=== PATIENT | male | born 1960 | race Caucasian/White ===

== ENCOUNTER 2016-10-21 15:02 | Emergency (ER) | payer OTHER ==
[~2016-10-21] VITALS: Ht 172.7 cm; Wt 88.8 kg
[2016-10-21 15:03] VITALS: BP 139/78
[2016-10-21] MEDS ORDERED: LIDOCAINE 2% MDV 20 ML VIAL As Ordered ONE (16:21)
[2016-10-21] MEDS ORDERED: LIDOCAINE 2% MDV 20 ML VIAL SC ONE (16:30)
== END 2016-10-21 17:04 | disposition home or self-care (01) ==
LOC: M ED 15:02
DX: S61.214A Laceration without foreign body of right ring finger without damage to nail, initial encounter (principal); Z87.891 Personal history of nicotine dependence; W45.8XXA Other foreign body or object entering through skin, initial encounter; Y92.099 Unspecified place in other non-institutional residence as the place of occurrence of the external cause; Y93.89 Activity, other specified; Y99.9 Unspecified external cause status

== ENCOUNTER → 2018-02-05 | Outpatient (CLI) | payer OTHER | LOC: M SLEEP 19:14 | DX: G47.33 Obstructive sleep apnea (adult) (pediatric) (principal) | CPT/HCPCS: 95810 ==

== ENCOUNTER 2020-09-28 13:40 | Emergency (ER) | payer OTHER ==
[~2020-09-28] VITALS: Ht 172.7 cm; Wt 107.3 kg
[2020-09-28 14:29] LABS: BASO % 0.6 % (0.0-1.0); EOS # 0.1 10^3/uL (0.0-0.5); EOS % 1.2 % (0.0-3.0); HEMATOCRIT 48.4 % (42.0-52.0); HEMOGLOBIN 15.7 g/dl (13.5-17.5); LYMPH # 1.2 10^3/uL (1.5-5.0); LYMPH % 17.7 % (24.0-44.0); MEAN CORPUSCULAR HEMOGLOBIN 28.9 pg (27.0-33.0); MEAN CORPUSCULAR HGB CONC 32.4 g/dl (32.0-36.5); MEAN CORPUSCULAR VOLUME 89.1 fl (80.0-96.0); MONO % 14.7 % (2.0-8.0); NEUTROPHILS # 4.4 10^3/uL (1.5-8.5); NEUTROPHILS % 65.4 % (36.0-66.0); PLATELET COUNT, AUTOMATED 259 10^3/uL (150-450); RED BLOOD COUNT 5.43 10^6/uL (4.30-6.10); WHITE BLOOD COUNT 6.8 10^3/uL (4.0-10.0)
[2020-09-28] MEDS ORDERED: COMBIVENT RESPIMAT 100-20MCG INHALER 4GM INH STA (14:44)
[2020-09-28 14:51] LABS: ALBUMIN 4.3 GM/DL (3.2-5.2); ALT/SGPT 45 U/L (12-78); BILIRUBIN,DIRECT < 0.1 MG/DL (0.0-0.2); BILIRUBIN,TOTAL 0.3 MG/DL (0.2-1.0); TOTAL PROTEIN 7.4 GM/DL (6.4-8.2)
--- NOTE | 2020-09-28 14:57 | REP ---
INDICATION: DYSPNEA/COUGH. COMPARISON: None. TECHNIQUE: Single portable AP view of the chest was performed. FINDINGS: There is no evidence of acute infiltrate. There is mild bibasilar fibro atelectatic change. The heart is not significantly enlarged. The mediastinal silhouette is unremarkable. The visualized osseous structures appear intact. IMPRESSION: No acute pulmonary disease.Mild bibasilar fibro atelectatic change. <Electronically signed by Corby Layton > 09/28/20 [id number]
[2020-09-28] MEDS ORDERED: ISOVUE-370 76% 100ML VIAL As Ordered ONE (16:04)
--- NOTE | 2020-09-28 16:40 | REP ---
INDICATION: CP/SOB. Otherwise no acute disease. COMPARISON: None. TECHNIQUE: Contrast dose: 75 ML of Isovue [address] technique: Helical scanning is acquired and overlapping 1.5 mm and contiguous 3 mm axial images are reformatted. In addition, maximum intensity projection and multiplanar re-formation images are generated in sagittal and coronal imaging projections. FINDINGS: There is good opacification in the pulmonary arterial tree. There is no evidence of vessel cut off or filling defect to suggest pulmonary embolus. Homogeneous opacity is seen in the thoracic aorta. There is no evidence of aneurysm or dissection. There is no evidence of pleural or pericardial effusion. No hilar or mediastinal mass or adenopathy is observed. Lung window settings demonstrate no evidence of infiltrate, lung mass, or significant pulmonary nodule. There is a granulomatous calcification in the left upper lobe. Lung parenchyma is otherwise clear. In the upper abdomen, there is fatty infiltration of the liver diffusely. Normal adrenal glands are seen. A sliding-type hiatal hernia is noted. There are 2 large calcified gallstones in the lumen of the gallbladder. The visualized upper abdominal structures are otherwise unremarkable. IMPRESSION: No CT evidence of pulmonary embolus. Cholelithiasis. Diffuse fatty infiltration of the liver. <Electronically signed by Colby Varner > 09/28/20 [id number]
[2020-09-28] MEDS ORDERED: PROV108A INH (17:15)
[2020-09-28 17:30] VITALS: BP 132/80
--- NOTE | 2020-09-29 07:20 | ECGEPIP ---
[facility] - ED Test Date: 2020-09-28 Pat Name: PEMA LOPEZ Department: Room: - Gender: Male Food Analyst: PETE : 1960 Requested By: Ángela Callahan Order Number: [id number] Reading MD: Pete Molina Measurements Intervals [place] Rate: 91 P: 21 MD: 150 QRS: 6 QRSD: 78 T: 5 QT: 346 QTc: 425 Interpretive Statements Normal sinus rhythm Low voltage QRS POOR R WAVE PROGRESSION NONSPECIFIC T WAVE ABNORMALITY(S) NO PRIORS FOR COMPARISON Electronically Signed on 09-29-2020 7:20:19 EDT by Pete Molina
== END 2020-09-28 17:45 | disposition home or self-care (01) ==
LOC: M ED 13:40
DX: R06.9 Unspecified abnormalities of breathing (principal); R05 Cough; I10 Essential (primary) hypertension; F43.10 Post-traumatic stress disorder, unspecified; Z79.899 Other long term (current) drug therapy; Z87.891 Personal history of nicotine dependence
CPT/HCPCS: 36415; 71045; 71275; 80047; 80076; 84484; 85025; 87798; 93005; 93041; 94760; 99285; Q9967

== ENCOUNTER 2020-11-21 00:23 | Emergency (ER) | payer OTHER ==
[~2020-11-21] VITALS: Ht 172.7 cm; Wt 111.3 kg
[~2020-11-21 00:23] MED LIST: PROV108A INH
[2020-11-21] MEDS ORDERED: LISI-898 PO (00:30)
[2020-11-21] MEDS ORDERED: ACETAMINOPHEN 325 MG TAB PO ONE (02:05)
[2020-11-21 03:22] LABS: RSV AMPLIFICATION NEGATIVE (NEGATIVE)
[2020-11-21 04:38] VITALS: BP 138/80
== END 2020-11-21 05:17 | disposition left against medical advice (07) ==
LOC: M ED 00:23
DX: Z53.29 Procedure and treatment not carried out because of patient's decision for other reasons (principal)

== ENCOUNTER 2021-05-27 08:38 | Emergency (ER) | payer OTHER ==
[~2021-05-27] VITALS: Ht 172.7 cm; Wt 100.9 kg
[2021-05-27 08:38] VITALS: BP 143/73
[~2021-05-27 08:38] MED LIST changes: +LISI5TAB11 PO
[2021-05-27] MEDS ORDERED: TRAZ-189 PO (08:44)
[2021-05-27 09:41] LABS: BASO # 0.1 10^3/uL (0.0-0.2); BASO % 0.9 % (0.0-1.0); EOS # 0.1 10^3/uL (0.0-0.5); EOS % 1.8 % (0.0-3.0); HEMATOCRIT 45.1 % (42.0-52.0); HEMOGLOBIN 14.5 g/dl (13.5-17.5); LYMPH # 1.9 10^3/uL (1.5-5.0); LYMPH % 34.1 % (24.0-44.0); MEAN CORPUSCULAR HEMOGLOBIN 30.7 pg (27.0-33.0); MEAN CORPUSCULAR HGB CONC 32.2 g/dl (32.0-36.5); MEAN CORPUSCULAR VOLUME 95.3 fl (80.0-96.0); MONO # 0.5 10^3/uL (0.0-0.8); MONO % 9.5 % (2.0-8.0); NEUTROPHILS % 53.2 % (36.0-66.0); PLATELET COUNT, AUTOMATED 316 10^3/uL (150-450); RED BLOOD COUNT 4.73 10^6/uL (4.30-6.10); WHITE BLOOD COUNT 5.7 10^3/uL (4.0-10.0)
[2021-05-27 10:24] LABS: BLOOD UREA NITROGEN 15 MG/DL (7-18); CALCIUM LEVEL 9.7 MG/DL (8.8-10.2); CARBON DIOXIDE LEVEL 24 MEQ/L (21-32); CHLORIDE LEVEL 107 MEQ/L (98-107); CREATININE FOR GFR 1.11 MG/DL (0.70-1.30); GLOMERULAR FILTRATION RATE > 60.0 (>49); GLUCOSE, FASTING 118 MG/DL (70-100); POTASSIUM SERUM 5.4 MEQ/L (3.5-5.1); SODIUM LEVEL 139 MEQ/L (136-145)
== END 2021-05-27 10:34 | disposition home or self-care (01) ==
LOC: M ED 08:38
DX: R51.9 Headache, unspecified (principal); E87.5 Hyperkalemia; I10 Essential (primary) hypertension; F43.10 Post-traumatic stress disorder, unspecified; Z87.891 Personal history of nicotine dependence; Z79.899 Other long term (current) drug therapy

== ENCOUNTER 2021-10-23 00:15 | Day surgery (SDC) | payer OTHER ==
[2021-10-22 19:30] VITALS: BP 117/57
[~2021-10-23] VITALS: Ht 172.7 cm; Wt 107.8 kg
[2021-10-23] VITALS (8 sets, daily range): BP systolic 98–120; BP diastolic 55–67
[~2021-10-23 00:15] MED LIST changes: +TRAZ-189 PO
[2021-10-23 03:00] LABS: BASO % 0.2 % (0.0-1.0); EOS # 0.1 10^3/uL (0.0-0.5); EOS % 0.4 % (0.0-3.0); HEMATOCRIT 42.5 % (42.0-52.0); HEMOGLOBIN 14.1 g/dl (13.5-17.5); LYMPH # 1.2 10^3/uL (1.5-5.0); LYMPH % 7.2 % (24.0-44.0); MEAN CORPUSCULAR HEMOGLOBIN 29.4 pg (27.0-33.0); MEAN CORPUSCULAR HGB CONC 33.2 g/dl (32.0-36.5); MEAN CORPUSCULAR VOLUME 88.5 fl (80.0-96.0); MONO # 1.1 10^3/uL (0.0-0.8); MONO % 6.4 % (2.0-8.0); NEUTROPHILS # 14.4 10^3/uL (1.5-8.5); NEUTROPHILS % 85.3 % (36.0-66.0); PLATELET COUNT, AUTOMATED 260 10^3/uL (150-450); WHITE BLOOD COUNT 16.9 10^3/uL (4.0-10.0)
[2021-10-23 03:26] LABS: ALBUMIN 4.1 GM/DL (3.2-5.2); ALT/SGPT 35 U/L (12-78); BILIRUBIN,DIRECT 0.2 MG/DL (0.0-0.2); BILIRUBIN,TOTAL 0.7 MG/DL (0.2-1.0); BLOOD UREA NITROGEN 15 MG/DL (7-18); CALCIUM LEVEL 9.4 MG/DL (8.8-10.2); CARBON DIOXIDE LEVEL 23 MEQ/L (21-32); CHLORIDE LEVEL 109 MEQ/L (98-107); GLOMERULAR FILTRATION RATE > 60.0 (>49); GLUCOSE, FASTING 171 MG/DL (70-100); LIPASE 129 U/L (73-393); POTASSIUM SERUM 4.5 MEQ/L (3.5-5.1); SODIUM LEVEL 141 MEQ/L (136-145); TOTAL PROTEIN 6.9 GM/DL (6.4-8.2)
[2021-10-23] MEDS ORDERED: MORPHINE 4 MG/ML 1ML VIAL/SYRINGE IV ONE (04:15)
[2021-10-23] MEDS ORDERED: ONDANSETRON 4MG 2ML VIAL IV ONE (04:15)
[2021-10-23] MEDS ORDERED: NS 1,000 ML IV ONE ×2 (04:15→05:50)
[2021-10-23] MEDS ORDERED: ISOVUE-370 76% 100ML VIAL As Ordered ONE (04:22)
[2021-10-23 05:37] LABS: RSV AMPLIFICATION NEGATIVE (NEGATIVE)
[2021-10-23] MEDS ORDERED: PIPERACILLIN/TAZOBACTAM SOD 4.5 GM in D5W MINI-BAG PLUS 50 ML IV ONE (05:50)
[2021-10-23] MEDS ORDERED: LISI40TA4 PO (06:17)
[2021-10-23] MEDS ORDERED: ASPI81TA26 PO (06:17)
[2021-10-23] MEDS ORDERED: HOME MED LIST COMPLETE! XX SCH (06:20)
[2021-10-23] MEDS ORDERED: ONDANSETRON 4MG 2ML VIAL IV PRN ×2 (10:30→17:00)
[2021-10-23] MEDS ORDERED: MORPHINE 2 MG/ML 1ML VIAL IV PRN (10:30)
[2021-10-23] MEDS ORDERED: KETOROLAC 30 MG/ML 1ML VIAL IV PRN (10:30)
[2021-10-23] MEDS ORDERED: NS 1,000 ML IV SCH (10:30)
[2021-10-23] MEDS ORDERED: PIPERACILLIN/TAZOBACTAM SOD 3.375 GM in D5W MINI-BAG PLUS 50 ML IV SCH (12:00)
[2021-10-23] MEDS ORDERED: propofoL 200 MG/20 ML VIAL As Ordered ONE (14:13)
[2021-10-23] MEDS ORDERED: LIDOCAINE 2% 100MG/5ML SDV (FOR ANES.) As Ordered ONE (14:13)
[2021-10-23] MEDS ORDERED: MIDAZOLAM INJ 2MG/2ML VIAL (J2250 PER 1MG) As Ordered ONE (14:13)
[2021-10-23] MEDS ORDERED: ROCURONIUM BROMIDE 50 MG/5 ML VIAL As Ordered ONE (14:13)
[2021-10-23] MEDS ORDERED: dexameTHASONE 4 MG/ML 1ML VIAL (J1100 PER 1MG) As Ordered ONE (14:13)
[2021-10-23] MEDS ORDERED: ONDANSETRON 4MG 2ML VIAL As Ordered ONE (14:13)
[2021-10-23] MEDS ORDERED: fentaNYL 100 MCG/2 ML INJECTION As Ordered ONE ×2 (14:13→15:57)
[2021-10-23] MEDS ORDERED: SUGAMMADEX SODIUM 500 MG/5 ML VIAL (BRIDION) As Ordered ONE ×2 (14:13→16:03)
[2021-10-23] MEDS ORDERED: BUPIVACAINE HCL 0.25% 30ML VIAL As Ordered ONE (14:19)
[2021-10-23] MEDS ORDERED: PHENYLephrine 500MCG 5ML (100MCG/ML) SYRINGE As Ordered ONE (16:03)
[2021-10-23] MEDS ORDERED: fentaNYL 100 MCG/2 ML INJECTION IV PRN (17:00)
[2021-10-23] MEDS ORDERED: LR 1,000 ML IV SCH (17:00)
[2021-10-23] MEDS ORDERED: oxyCODONE 5MG TAB PO PRN (17:00)
[2021-10-23] MEDS ORDERED: HYDROMORPHONE HCL 0.5 MG/ 0.5 ML SYRINGE (J1170 PER 1) IV PRN (17:00)
[2021-10-23] MEDS ORDERED: IBUPROFEN 600MG TAB PO PRN (17:40)
[2021-10-23] MEDS ORDERED: NORCO, ANEXSIA 5/325MG TABLET (HYDROcodone/ACETAMINOPHEN) PO PRN (17:40)
[2021-10-23] MEDS ORDERED: ACETAMINOPHEN TAB 650MG DOSE (2X325MG) PO PRN (17:40)
[2021-10-23] MEDS ORDERED: traZODone 100 MG TAB PO PRN (17:40)
[2021-10-23] MEDS: LR 1,000 ML IV SCH ×2 (18:35→21:22)
[2021-10-24 03:16] VITALS: BP 111/59
[2021-10-24 05:19] VITALS: BP 124/65
[2021-10-24] MEDS: LR 1,000 ML IV SCH (05:52)
[2021-10-24 10:00] VITALS: BP 106/56
== END 2021-10-24 11:06 | disposition home or self-care (01) ==
LOC: M ED 00:15 → M SDC 00:16 → M MSPAV 18:30 → M SDC 10-24 11:06
PROVIDERS: ATTEND Surgery
DX: K35.890 Other acute appendicitis without perforation or gangrene (principal); R73.03 Prediabetes; E66.9 Obesity, unspecified; Z86.73 Personal history of transient ischemic attack (TIA), and cerebral infarction without residual deficits; G47.33 Obstructive sleep apnea (adult) (pediatric); F41.9 Anxiety disorder, unspecified
CPT/HCPCS: 44970; 80048; 80076; 83605; 83690; 85025; 87631; 88304; 93005; 93041; 96361; 96365; 96366; 96375; 96376; 99285; J1100; J2250; J2270; J2370; J2405; J2543; J3010; Q9967

== ENCOUNTER → 2021-12-21 | Outpatient (CLI) | payer OTHER ==
[~2021-12-21] MED LIST changes: +ALBU6.7H6 INH; +ASPI81TA26 PO; +LISI40TA4 PO; -PROV108A INH
== END ==
LOC: M RAD 09:44
PROVIDERS: ATTEND Nurse Practitioner Family
DX: Z12.2 Encounter for screening for malignant neoplasm of respiratory organs (principal); Z87.891 Personal history of nicotine dependence; R91.8 Other nonspecific abnormal finding of lung field

== ENCOUNTER → 2022-03-04 | Outpatient (CLI) | payer OTHER | LOC: M LABSMTC 10:30 | PROVIDERS: ATTEND Anesthesiology | DX: Z01.812 Encounter for preprocedural laboratory examination (principal); Z11.52 Encounter for screening for COVID-19 ==

== ENCOUNTER 2022-03-07 10:00 | Day surgery (SDC) | payer OTHER ==
[~2022-03-07] VITALS: Ht 172.7 cm; Wt 107.4 kg
[~2022-03-07 10:00] MED LIST changes: +NS 1,000 ML IV ONE
[2022-03-07] MEDS ORDERED: LIDOCAINE 2% 100MG/5ML SDV (FOR ANES.) As Ordered ONE (10:19)
[2022-03-07] MEDS ORDERED: MIDAZOLAM INJ 2MG/2ML VIAL (J2250 PER 1MG) As Ordered ONE (10:19)
[2022-03-07] MEDS ORDERED: propofoL 200 MG/20 ML VIAL As Ordered ONE ×2 (10:19→10:33)
[2022-03-07 11:43] VITALS: BP 120/57
== END 2022-03-07 15:09 | disposition home or self-care (01) ==
LOC: M OPP 10:00
PROVIDERS: ATTEND Surgery
DX: Z12.11 Encounter for screening for malignant neoplasm of colon (principal); K64.9 Unspecified hemorrhoids; Z87.891 Personal history of nicotine dependence; I10 Essential (primary) hypertension; G47.30 Sleep apnea, unspecified; F32.9 Major depressive disorder, single episode, unspecified; F41.9 Anxiety disorder, unspecified; G60.9 Hereditary and idiopathic neuropathy, unspecified; Z79.82 Long term (current) use of aspirin; Z79.899 Other long term (current) drug therapy; Z80.52 Family history of malignant neoplasm of bladder; Z80.8 Family history of malignant neoplasm of other organs or systems
CPT/HCPCS: G0121; J2250

== ENCOUNTER → 2023-03-29 | Outpatient (CLI) | payer OTHER ==
[~2023-03-29] MED LIST changes: -NS 1,000 ML IV ONE
== END ==
LOC: M PLARAD 12:04
PROVIDERS: ATTEND Nurse Practitioner Family
DX: R41.81 Age-related cognitive decline (principal); H70.93 Unspecified mastoiditis, bilateral

== ENCOUNTER → 2023-04-24 | Outpatient (CLI) | payer OTHER | LOC: M RAD 06:14 | PROVIDERS: ATTEND Nurse Practitioner Family | DX: Z12.2 Encounter for screening for malignant neoplasm of respiratory organs (principal); F17.218 Nicotine dependence, cigarettes, with other nicotine-induced disorders; J84.10 Pulmonary fibrosis, unspecified; R91.8 Other nonspecific abnormal finding of lung field; K80.20 Calculus of gallbladder without cholecystitis without obstruction; N62 Hypertrophy of breast ==